=== PATIENT | female | born 1985 | race Caucasian/White ===

== ENCOUNTER 2017-03-21 23:16 | Emergency (ER) | payer OTHER ==
[~2017-03-21] VITALS: Ht 167.6 cm; Wt 63.7 kg
[~2017-03-21 23:16] MED LIST: ALBUAER19 INH; AMPH1TAB PO; CITA40TA12 PO; HYDR-5688 PO; PROM25TA16 PO; TOPI100T20 PO
[2017-03-21 23:27] VITALS: TEMP 37; Ht 167.6 cm; Wt 63.7 kg
[2017-03-21] MEDS ORDERED: AMPH20TA2 PO (23:51)
[2017-03-21] MEDS ORDERED: SERT-234 PO (23:52)
[2017-03-21] MEDS ORDERED: DSY/150 PO (23:54)
[2017-03-21] MEDS ORDERED: TIZA4CAP PO (23:55)
[2017-03-22 00:23] LABS: HEMATOCRIT 37.2 % (37-47); HEMOGLOBIN 12.5 g/dL (12.0-16.0); MEAN CORPUSCULAR HEMOGLOBIN 28.2 pg (25-34); MEAN CORPUSCULAR HGB CONC 33.6 g/dl (32-36); PLATELET COUNT 182 K/uL (130-400); RED CELL DISTRIBUTION WIDTH CV 13.9 % (11.5-14.5); RED CELL DISTRIBUTION WIDTH SD 42.6 fL (36.4-46.3); WHITE BLOOD COUNT 8.33 K/uL (4.8-10.8)
[2017-03-22 00:45] LABS: ALBUMIN 4.3 gm/dl (3.4-5.0); CALCIUM 8.7 mg/dl (8.5-10.1); CREATININE 0.83 mg/dl (0.60-1.20); POTASSIUM 3.4 mmol/L (3.5-5.1)
[2017-03-22 00:47] LABS: TOTAL PROTEIN 7.2 gm/dl (6.4-8.2)
[2017-03-22] MEDS ORDERED: KETOROLAC TROMETHAMINE 30 MG/ML VIAL IV STA (00:50)
[2017-03-22 00:55] LABS: BASO ABS # 0.08 K/uL (0-0.2); EOS % 0.4 %; EOS ABS # 0.03 K/uL (0-0.5); IG# 0.03 K/uL (0.00-0.02); LYMPH % 16.8 %; MONO % 7.8 %; MONO ABS # 0.65 K/uL (0.11-0.59); NEUT % 73.6 %; NEUT ABS # 6.14 K/uL (1.4-6.5)
[2017-03-22] MEDS ORDERED: SILVER NITR/POTASSIUM NITRATE APPLICATOR EXT STA (01:31)
[2017-03-22 02:20] VITALS: BP 119/77; PULSE 69; O2SAT 98
--- NOTE | 2017-03-22 05:15 | EMERGENCY ROOM VISIT NOTE ---
History First contact with patient: 23:41 Chief Complaint: VAGINAL BLEEDING Stated Complaint: VAGINAL BLEEDING AFTER HYSTERECTOMY 12/26 History of Present Illness The patient is a 32 year old female who presents to the Emergency Room with complaints of vaginal bleeding after having intercourse tonight. Patient states is the first time she's had intercourse since her hysterectomy done [place] December 2016. Patient states she was having intercourse with the gentleman and he noticed there was blood. Patient continued to have some blood and this is what prompted her to come here. She states she did not have rough intercourse and there is no instrumentation. Patient complains of cramping and pain, 5 out of 10. Nothing makes it better or worse. Patient denies vaginal odor, vaginal discharge, fever, chills, urinary symptoms. She just finished antibiotics for bacterial vaginosis from her OB doctor in [place], Dr. Rodriguez. Review of Systems See HPI for pertinent positives & negatives. A total of 10 systems reviewed and were otherwise negative. Past Medical/Surgical History Medical Problems: (1) Anxiety State Nos (2) Asthma (3) Bone Disorder-Antepartum (4) Desired sterilization (5) Esophageal Reflux (6) Fibromyalgia (7) Irritable Bowel Syndrome (8) Pneumonia Surgical Problems: (1) Delivery Nos (2) H/O: (3) Hx of tonsillectomy Social History Problems: (1) Hypertension Nos Family History Diabetes mellitus FH: cancer FH: gallbladder disease Hypertension Kidney disease Kidney stones Social History Smoking Status: Current Every Day Smoker Alcohol Use: none Drug Use: none Marital Status: in relationship Housing Status: lives alone Occupation Status: employed Current/Historical Medications Scheduled Amphetamine-Dextroamphetamine 20MG (Adderall 20MG), 20 MG PO BID Sertraline (Zoloft), 100 MG PO DAILY Tizanidine (Zanaflex), 4 MG PO QAM Topiramate (Topamax), 100 MG PO BID Trazodone HCl (Trazodone HCl), 300 MG PO HS Scheduled PRN Albuterol Inhaler (Ventolin Inhaler), 2 PUFFS INH QID PRN for Asthma Symptoms Hydrocodone/Acetaminophen 5MG/325MG ([place] 5MG/325MG), 1 TABLET PO BID PRN for Pain Promethazine HCl (Promethazine HCl), 25-50 MG PO BID PRN for Nausea or Vomiting Physical Exam Vital Signs Date Time Temp Pulse Resp B/P (MAP) Pulse Ox O2 Delivery O2 Flow Rate FiO2 03/22/17 02:20 69 16 119/77 98 03/22/17 02:14 69 16 119/77 98 Room Air 03/22/17 01:06 62 16 134/77 100 Room Air 03/22/17 00:21 Room Air 03/21/17 23:27 37.0 94 20 129/72 97 Room Air Physical Exam VITALS: Vitals are noted on the nurse's note and reviewed by myself. Vital signs stable. GENERAL: White female, in no acute distress, nondiaphoretic, well-developed well -nourished. SKIN: Capillary reflex less than 2 seconds. HEENT: Normocephalic. PERRLA. EOMI. Nares patent. Mucous membranes moist. Neck is supple without nuchal rigidity. HEART: Regular rate and rhythm without murmurs gallops or rubs. LUNGS: Clear to auscultation bilaterally without wheezes, rales or rhonchi. No retractions or accessory muscle use. ABDOMEN: Positive bowel sounds x 4. Normal tympanic percussion. Soft, nontender, without masses or organomegaly. Ahnley sign negative. No guarding or rebound tenderness. No CVA tenderness exam: Normal external female genitalia, cervical cuff at 12:00 with 2 mm abrasion that is bleeding that was cauterized with silver nitrate and bleeding resolved and hemostasis was achieved. No other sites of bleeding. Pbx Mechanic present. No discharge in the vault. Minimal blood within the vault. MUSCULOSKELETAL: No gross musculoskeletal defects. NEURO: Patient was alert and oriented to person place and time. Normal sensation to light and sharp touch No focal neurological deficits. Medical Decision & Procedures Laboratory Results 03/22/17 00:15 Red Blood Count 4.43, Mean Corpuscular Volume 84.0, Mean Corpuscular Hemoglobin 28.2, Mean Corpuscular Hemoglobin Concent 33.6, Neutrophils (%) (Auto) 73.6, Lymphocytes (%) (Auto) 16.8, Monocytes (%) (Auto) 7.8, Eosinophils (%) (Auto) 0.4, Basophils (%) (Auto) 1.0, Neutrophils # (Auto) 6.14, Lymphocytes # (Auto) 1.40, Monocytes # (Auto) 0.65, Eosinophils # (Auto) 0.03, Basophils # (Auto) 0.08 03/22/17 00:15 Test 03/22/17 00:15 03/22/17 00:40 White Blood Count 8.33 K/uL (4.8-10.8) Red Blood Count 4.43 M/uL (4.2-5.4) Hemoglobin 12.5 g/dL (12.0-16.0) Hematocrit 37.2 % (37-47) Mean Corpuscular Volume 84.0 fL (80-100) Mean Corpuscular Hemoglobin 28.2 pg (25-34) Mean Corpuscular Hemoglobin Concent 33.6 g/dl (32-36) Platelet Count 182 K/uL (130-400) Neutrophils (%) (Auto) 73.6 % Lymphocytes (%) (Auto) 16.8 % Monocytes (%) (Auto) 7.8 % Eosinophils (%) (Auto) 0.4 % Basophils (%) (Auto) 1.0 % Neutrophils # (Auto) 6.14 K/uL (1.4-6.5) Lymphocytes # (Auto) 1.40 K/uL (1.2-3.4) Monocytes # (Auto) 0.65 K/uL (0.11-0.59) Eosinophils # (Auto) 0.03 K/uL (0-0.5) Basophils # (Auto) 0.08 K/uL (0-0.2) RDW Standard Deviation 42.6 fL (36.4-46.3) RDW Coefficient of Variation 13.9 % (11.5-14.5) Immature Granulocyte % (Auto) 0.4 % Immature Granulocyte # (Auto) 0.03 K/uL (0.00-0.02) Anion Gap 7.0 mmol/L (3-11) Est Creatinine Clear Calc Drug Dose 90.2 ml/min Estimated GFR () 107.4 Estimated GFR (Non- 92.7 BUN/Creatinine Ratio 15.6 (10-20) Calcium Level 8.7 mg/dl (8.5-10.1) Total Bilirubin 0.6 mg/dl (0.2-1) Aspartate Amino Transf (AST/SGOT) 11 U/L (15-37) Alanine Aminotransferase (ALT/SGPT) 16 U/L (12-78) Alkaline Phosphatase 48 U/L (45-117) Total Protein 7.2 gm/dl (6.4-8.2) Albumin 4.3 gm/dl (3.4-5.0) Globulin 2.9 gm/dl (2.5-4.0) Albumin/Globulin Ratio 1.5 (0.9-2) Urine Color YELLOW Urine Appearance CLEAR (CLEAR) Urine pH 5.5 (4.5-7.5) Urine Specific [place] 1.018 (1.000-1.030) Urine Protein NEG (NEG) Urine Glucose (UA) NEG (NEG) Urine Ketones TRACE (NEG) Urine Occult Blood 3+ (NEG) Urine Nitrite NEG (NEG) Urine Bilirubin NEG (NEG) Urine Urobilinogen NEG (NEG) Urine Leukocyte Esterase TRACE (NEG) Urine WBC (Auto) 1-5 /hpf (0-5) Urine RBC (Auto) >30 /hpf (0-4) Urine Hyaline Casts (Auto) 1-5 /lpf (0-5) Urine Epithelial Cells (Auto) 10-20 /lpf (0-5) Urine Bacteria (Auto) NEG (NEG) Medications Administered Medications (Trade) Dose Ordered Sig/Fernando Route Start Time Stop Time Status Last Admin Dose Admin Ketorolac Tromethamine (Toradol Inj) 30 mg NOW STAT IV 03/22/17 00:50 03/22/17 00:51 DC 03/22/17 01:05 30 MG ED Course Prior records/ancillary studies reviewed. Triage Nursing notes reviewed. Additional history obtained from the friend. The patient's history was concerning for vaginal bleeding Differential diagnosis: Etiologies such as vaginal tear, bleeding dyscrasia, trauma, infection, as well as others were entertained. Physical examination: As above. Vitals signs revealed stable. ER treatment provided: Silver nitrate. Patient did consent to me using silver nitrate to the affected area On reassessment the patient felt better. Diagnostic interpretation by me: Stable No leukocytosis Consultation: A consultation was placed with the intelligence chief physician, Dr. Devlin. The case was discussed and diagnostics were reviewed. He recommends that I cauterized the area and have her follow-up tomorrow with [facility]. This is done without complication. Hemostasis was achieved and patient verbally consented to this procedure. This appears to be consistent with vaginal tear most likely from intercourse. Patient's bleeding resolved after treatment as above. She is advised to follow- up with OB tomorrow and no intercourse until cleared by [facility]. She is advised to return to the ER immediately for heavy bleeding, pain, worsening signs or symptoms or as needed. Patient had stable H&H. Minimal bleeding on exam. She is well-appearing.. By the evaluation outlined above emergent etiologies such as bleeding dyscrasia, trauma, as well as others were deemed relatively unlikely. Patient did request referral to OB quality control representative ce as she rather see a [facility] here then [facility]. The pt informed about the findings as listed above. All questions were answered and pleased with the treatment. Return instructions were outlined and the patient was discharged in stable condition. Referral: The patient was referred to [facility] for follow-up in 2 to 3 days for a recheck of her current condition. Case reviewed with my attending The chart was completed utilizing [employer] Keyboard Speech voice recognition software. Grammatical errors, random word insertions, pronoun errors, and incomplete sentences are an occassional consequence of this system due to software limitations, ambient noise, and hardware issues. Any formal questions or concerns about the content, text, or information contained within the body of this dictation should be directly addressed to the physician billing assistant for clarification. Medical Decision As above Medication Reconcilliation Current Medication List: was personally reviewed by me Blood Pressure Screening Patient's blood pressure: Normal blood pressure Impression Primary Impression: Vaginal laceration Departure Information Dispostion Home / Self-Care Condition GOOD Referrals Lane Devlin M.D. Forms WORK / SCHOOL INSTRUCTIONS, HOME CARE DOCUMENTATION FORM, IMPORTANT VISIT INFORMATION Patient Instructions My [facility] Additional Instructions Rest. Stay well hydrated. No strenuous activity or intercourse until cleared by [facility]. Ibuprofen(Motrin, Advil) may be used for fever or pain. Use 600mg every six hours as needed. Take with food. Avoid using more than 2400mg in a 24 hour period. Do not use 2400mg per day for more than three consecutive days without physician direction. Prolonged inappropriate use can lead to stomach upset or ulcers. (AND/OR) Acetaminophen(Tylenol) may be used for fever or pain. Use 1000mg every six hours as needed. Avoid using more than 3000mg in a 24 hour period. Rest and drink plenty of fluids as tolerated. Continue current medications. Return to the ER immediately for worsening or persistent heavy vaginal bleeding , abdominal pain, vomiting, fevers, chest pains, difficulty breathing, worsening of your condition, or as needed. Follow up with your [facility] tomorrow, call for an appointment, for a recheck of your current condition. Problem Qualifiers Primary Impression: Vaginal laceration Encounter type: initial encounter Qualified Codes: S31.41XA - Laceration without foreign body of vagina and vulva, initial encounter
== END 2017-03-22 02:20 | disposition home or self-care (01) ==
LOC: C.EDB 23:18 → C.EDC 03-22 02:20
DX: S31.41XA Laceration without foreign body of vagina and vulva, initial encounter (principal); X58.XXXA Exposure to other specified factors, initial encounter; F41.9 Anxiety disorder, unspecified; J45.909 Unspecified asthma, uncomplicated; K21.9 Gastro-esophageal reflux disease without esophagitis; M79.7 Fibromyalgia; K58.9 Irritable bowel syndrome, unspecified; I10 Essential (primary) hypertension; F17.200 Nicotine dependence, unspecified, uncomplicated; Z90.710 Acquired absence of both cervix and uterus; Z83.3 Family history of diabetes mellitus; Z82.49 Family history of ischemic heart disease and other diseases of the circulatory system; Z84.1 Family history of disorders of kidney and ureter

== ENCOUNTER 2017-07-12 04:00 | Emergency (ER) | payer OTHER ==
[~2017-07-12] VITALS: Ht 167.6 cm; Wt 65.4 kg
[~2017-07-12 04:00] MED LIST changes: -AMPH1TAB PO; +AMPH20TA2 PO; -CITA40TA12 PO; +DSY/150 PO; +SERT-234 PO; +TIZA4CAP PO
[2017-07-12 04:03] VITALS: TEMP 36.4; Ht 167.6 cm; Wt 65.4 kg
[2017-07-12] MEDS ORDERED: KETOROLAC TROMETHAMINE 60 MG/2 ML VIAL IM STA (04:30)
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
[2017-07-12 06:01] VITALS: BP 128/78; PULSE 85; O2SAT 100
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
== END 2017-07-12 06:00 | disposition home or self-care (01) ==
LOC: C.EDB 04:01
DX: M79.601 Pain in right arm (principal); M79.602 Pain in left arm; S50.311A Abrasion of right elbow, initial encounter; S40.022A Contusion of left upper arm, initial encounter; M25.512 Pain in left shoulder; R07.81 Pleurodynia; Y04.8XXA Assault by other bodily force, initial encounter; Y92.009 Unspecified place in unspecified non-institutional (private) residence as the place of occurrence of the external cause; Z59.0 Homelessness; F17.200 Nicotine dependence, unspecified, uncomplicated; G43.909 Migraine, unspecified, not intractable, without status migrainosus; Z87.39 Personal history of other diseases of the musculoskeletal system and connective tissue; Z88.8 Allergy status to other drugs, medicaments and biological substances; Z88.1 Allergy status to other antibiotic agents; Z88.6 Allergy status to analgesic agent; Z91.041 Radiographic dye allergy status